=== PATIENT | male | born 1960 | race Caucasian/White ===

== ENCOUNTER 2017-12-08 16:36 | Emergency (ER) | payer MEDICAID ==
--- NOTE | 2017-12-08 19:47 | Emergency Department Report ---
Blank Doc - Documentation Documentation: Patient is a 57-year-old [place] male who is complaining of some right sided headache and dizziness starting yesterday. Patient is slightly worse when he stands up however he states is a spinning sensation. Patient at one point did feel near syncopal but did not lose consciousness. Patient denies any sinus pain or pressure but has had some nausea with the dizziness. Head CT will be performed as well as orthostatics are negative the patient is often for pain
[2017-12-08] MEDS ORDERED: ANTIVERT PO ONE (19:50)
[2017-12-08] MEDS ORDERED: NORCO 7.5/325 PO ONE (19:50)
--- NOTE | 2017-12-08 21:07 | Emergency Department Report ---
ED Dizziness HPI - General Chief Complaint: Dizziness Stated Complaint: DIZZY W/ MILLER Time Seen by Provider: 12/08/17 19:40 Source: patient, family Mode of arrival: Ambulatory Limitations: No Limitations - History of Present Illness Initial Comments: Patient is a 57-year-old Haitian male who is complaining of some right sided headache and dizziness starting yesterday. Patient is slightly worse when he stands up however he states is a spinning sensation. Patient at one point did feel near syncopal but did not lose consciousness. Patient denies any sinus pain or pressure but has had some nausea with the dizziness. Patient reports nasal congestion with some drainage in the back of his throat and some coughing that is worse with laying down. Denies any chest pain or shortness of breath. Patient reports coughing 1 week. He also has some blurred vision to his right eye on and off. He denies any right eye pain present. But he does report that he has a headache to the front of his head that is 8 out of 10 comes and goes. He also reports headache. MD Complaint: dizziness, lightheadedness, near syncope, other (headache) Onset/Timin -: week(s) Timing: waxing/waning Description: sense of movement, "room spinning", lightheadedness, near-syncope History of Same: No History of Trauma: No Severity: moderate Improves With: remaining still Worsens With: movement, position Associated Symptoms: cough. denies: ataxia, chest pain, confusion, diaphoresis , fever/chills, loss of appetite, malaise, rash, seizure, shortness of breath, syncope, weakness - Related Data Previous Rx's Medication Instructions Recorded Last Taken Type Doxycycline Hyclate [Doxycycline 100 mg PO Q12HR #28 tab 04/22/16 Unknown Rx Hyclate TAB] HYDROcodone/APAP 7.5-325 [[place] 1 each PO Q6HR PRN #14 tablet 04/22/16 Unknown Rx 7.5/325] Levofloxacin [Levaquin TAB] 500 mg PO QDAY #28 tablet 04/22/16 Unknown Rx Azithromycin [Zithromax Z-CELIA] 250 mg PO DAILY 6 Days #1 pack 12/08/17 Unknown Rx Benzonatate [Tessalon Perles] 100 mg PO Q8HR PRN #15 capsule 12/08/17 Unknown Rx Cetirizine HCl [ZyrTEC] 10 mg PO QAM 14 Days #14 capsule 12/08/17 Unknown Rx Fluticasone [Flonase] 1 spray NS QDAY 14 Days #1 bottle 12/08/17 Unknown Rx Meclizine [Antivert] 25 mg PO TID PRN #12 tablet 12/08/17 Unknown Rx Allergies Allergy/AdvReac Type Severity Reaction Status Date / Time No Known Allergies Allergy Verified 04/22/16 21:40 ED Review of Systems ROS: Stated complaint: DIZZY W/ MILELR Other details as noted in HPI Comment: All other systems reviewed and negative Constitutional: no symptoms reported Eyes: vision change (right eye with blurred vision on and off but none today.) ENT: congestion. denies: ear pain, throat pain Respiratory: cough. denies: orthopnea, shortness of breath, SOB with exertion, SOB at rest, stridor, wheezing Cardiovascular: denies: dyspnea on exertion, edema, syncope, paroxysmal nocturnal dyspnea Gastrointestinal: denies: abdominal pain, nausea, vomiting Genitourinary: denies: dysuria, hematuria Musculoskeletal: denies: back pain, joint swelling, arthralgia, myalgia Skin: denies: rash Neurological: headache, other (dizziness). denies: numbness, paresthesias, abnormal gait ED Past Medical Hx - Past Medical History Previous Medical History?: Yes Hx Kidney Stones: Yes (kidney stones) - Surgical History Past Surgical History?: Yes Additional Surgical History: abdominal surgery due to accident to control bleeding - Family History Family history: hypertension - Social History Smoking Status: Current Every Day Smoker Substance Use Type: None - Medications Home Medications: Home Medications Medication Instructions Recorded Confirmed Last Taken Type Doxycycline Hyclate [Doxycycline 100 mg PO Q12HR #28 tab 04/22/16 Unknown Rx Hyclate TAB] HYDROcodone/APAP 7.5-325 [[place] 1 each PO Q6HR PRN #14 tablet 04/22/16 Unknown Rx 7.5/325] Levofloxacin [Levaquin TAB] 500 mg PO QDAY #28 tablet 04/22/16 Unknown Rx Azithromycin [Zithromax Z-CELIA] 250 mg PO DAILY 6 Days #1 pack 12/08/17 Unknown Rx Benzonatate [Tessalon Perles] 100 mg PO Q8HR PRN #15 capsule 02/22/18 Unknown Rx Cetirizine HCl [ZyrTEC] 10 mg PO QAM 14 Days #14 capsule 12/08/17 Unknown Rx Fluticasone [Flonase] 1 spray NS QDAY 14 Days #1 bottle 12/08/17 Unknown Rx Meclizine [Antivert] 25 mg PO TID PRN #12 tablet 12/08/17 Unknown Rx ED Physical Exam - General Limitations: No Limitations General appearance: alert, in no apparent distress - Head Head exam: Present: atraumatic, normocephalic, normal inspection, other (normal exam) - Eye Eye exam: Present: normal appearance, PERRL, EOMI. Absent: scleral icterus, conjunctival injection, nystagmus, periorbital swelling, periorbital tenderness Pupils: Present: normal accommodation - ENT ENT exam: Present: normal orophraynx, mucous membranes moist, normal external ear exam, other (lateral nasal mucosa congested with erythema. Frontal and maxillary sinuses done nontender to palpate). Absent: TM's normal bilaterally ( Advil TM congested without any erythema) - Neck Neck exam: Present: normal inspection, full ROM, other (no C-spine tenderness). Absent: tenderness, meningismus, lymphadenopathy, thyromegaly - Respiratory Respiratory exam: Present: normal lung sounds bilaterally. Absent: respiratory distress, wheezes, rales, rhonchi, stridor, chest wall tenderness, accessory muscle use, decreased breath sounds, prolonged expiratory - Cardiovascular Cardiovascular Exam: Present: normal rhythm, bradycardia, normal heart sounds. Absent: systolic murmur, diastolic murmur - GI/Abdominal GI/Abdominal exam: Present: soft, normal bowel sounds. Absent: distended, tenderness, guarding, rebound, rigid, organomegaly, mass, bruit, pulsatile mass - Extremities Exam Extremities exam: Present: normal inspection, full ROM, normal capillary refill , other (no clubbing, cyanosis or edema. +2 pulses to all extremities and no neurovascular compromise). Absent: tenderness, pedal edema, joint swelling, calf tenderness - Back Exam Back exam: Present: normal inspection, full ROM, other (ambulates without any difficulties). Absent: tenderness, CVA tenderness (R), CVA tenderness (L), muscle spasm, paraspinal tenderness, vertebral tenderness, rash noted - Neurological Exam Neurological exam: Present: alert, oriented X3, normal gait, reflexes normal. Absent: motor sensory deficit - Expanded Neurological Exam Expanded Neurological exam: Absent: innattentive, memory loss-remote event, memory loss- recent event, ataxia, receptive aphasia, expressive aphasia, total aphasia, tremor, protecting the airway Patient oriented to: Present: person, place, time Speech: Present: fluid speech Cranial nerves: EOM's Intact: Normal, Gag Reflex: Normal, Tongue Deviation: Normal, Nystagmus: Normal, Facial Sensation: Normal Cerebellar function: Romberg: Normal Upper motor neuron: Pronator Drift: Normal, Sensory Extinction: Normal Sensory exam: Upper Extremity Light Touch: Normal, Upper Extremity Pin Prick: Normal, Upper Extremity Temperature: Normal, UE 2 Point Discrimination: Normal, Lower Extremity Light Touch: Normal, Lower Extremity Pin Prick: Normal Motor strength exam: RUE: 5, LUE: 5, RLE: 5, LLE: 5 DTR: bicep (R): 2+, bicep (L): 2+, tricep (R): 2+, tricep (L): 2+, knee (R): 2+ , knee (L): 2+, ankle (R): 2+, ankle (L): 2+ Best Eye Response ([place]): (4) open spontaneously Best Motor Response ([place]): (6) obeys commands Best Verbal Response ([place]): (5) oriented [place] Total: 15 - Psychiatric Psychiatric exam: Present: normal affect, depressed - Skin Skin exam: Present: warm, dry, intact, normal color. Absent: rash ED Course Vital Signs 12/08/17 12/08/17 17:27 20:01 Temperature 97.6 F Pulse Rate 59 L Respiratory 18 Rate Blood Pressure 131/70 O2 Sat by Pulse 99 Oximetry - Reevaluation(s) Reevaluation #1: 12/08/17 22:12 Patient stable in no acute distress. Hydrocodone one tablet by mouth and Antivert 1 tablet by mouth and voiced relief. ED Medical Decision Making - EKG Data -: EKG Interpreted by Me (sb @58 BPM) EKG shows normal: sinus rhythm Rate: bradycardia - EKG Data Interpretation: no acute changes - Radiology Data Radiology results: report reviewed CT scan of the head reveals no acute findings - Medical Decision Making ED course: Patient here reports dizziness, headache, cough with nasal congestion. Symptoms of cough and nasal congestion has been ongoing 1 week and dizziness headache started one day ago. He also reports that he had some blurred vision to his right eye on and off. He denies any eye pain. CT scan reveals no acute finding intracranial or extracranial. Moderate mucosal thickening in spenoid sinuses. Patient with nasal congestion and Terry tm congestion coupled with ct finding for sphenoid mucosal thickening appears pt with sinusitis. Ct and EKG results explained to patient and family. They voiced understanding. Patient to follow up with pcp in 4 days. patient given [place] 7.5/325 mg po and antivert 25mg po for pain and dizziness. He said he is feeling better. Patient discharged home with prescription for antivert, zyrtec, flonase, tessalon and zpack Critical care attestation.: If time is entered above; I have spent that time in minutes in the direct care of this critically ill patient, excluding procedure time. ED Disposition Clinical Impression: Vertigo, Upper respiratory infection with cough and congestion, Nicotine abuse Sinusitis Qualifiers: Sinusitis location: sphenoidal Chronicity: acute Recurrence: not specified as recurrent Qualified Code(s): J01.30 - Acute sphenoidal sinusitis, unspecified Disposition: DC-01 TO HOME OR SELFCARE Is pt being admited?: No Does the pt Need Aspirin: No Condition: Stable Instructions: How to Stop Smoking (ED), Sinusitis (ED), Vertigo (ED), Acute Cough (ED) Additional Instructions: Increase fluid intake Take medication as prescribed Follow up with Primary care as discussed Prescriptions: Azithromycin [Zithromax Z-CELIA] 250 mg PO DAILY 6 Days #1 pack Benzonatate [Tessalon Perles] 100 mg PO Q8HR PRN #15 capsule PRN Reason: Cough Cetirizine HCl [ZyrTEC] 10 mg PO QAM 14 Days #14 capsule Fluticasone [Flonase] 1 spray NS QDAY 14 Days #1 bottle Meclizine [Antivert] 25 mg PO TID PRN #12 tablet PRN Reason: Vertigo Referrals: PRIMARY CARE, [Primary Care Provider] - 12/12/17 [facility] [Outside] - 12/12/17 Forms: Work/School Release Form(ED), Accompanied Note
--- NOTE | 2017-12-08 21:49 | Cat Scan Report ---
FINAL REPORT PROCEDURE: CT head without contrast. TECHNIQUE: Computerized tomography of the head was performed without contrast material. HISTORY: Headache. COMPARISON: No prior studies are available for comparison. FINDINGS: The ventricles are normal in size. The valiente matter and white matter appear normal. There are no mass lesions. There is no intracranial hemorrhage. The calvarium appears intact. The mastoid air cells are clear. There is minimal mucosal thickening in both sphenoid sinuses. IMPRESSION: Normal study of the brain.
[2017-12-08 22:41] VITALS: BP 128/70
== END 2017-12-08 22:40 | disposition home or self-care (01) ==
LOC: ED 16:36
DX: R42 Dizziness and giddiness (principal); J06.9 Acute upper respiratory infection, unspecified; J01.30 Acute sphenoidal sinusitis, unspecified; F17.200 Nicotine dependence, unspecified, uncomplicated; Z87.442 Personal history of urinary calculi
CPT/HCPCS: 70450; 93005; 93010; 99283